=== PATIENT | female | born 1960 | race Caucasian/White ===

== ENCOUNTER 2017-10-14 08:56 | Emergency (ER) | payer BC, OTHER ==
[~2017-10-14] VITALS: Ht 170.2 cm; Wt 61.2 kg
--- NOTE | ~2017-10-14 | EKG ---
[address] [place] [employer] [place] [address] ELECTROCARDIOGRAM REPORT Name: JENISE GUERRERO Room #: DEP SEGUN Orellana#: [id number] Admission: 10/14/17 Attend Phys: Discharge: 10/14/17 Date of : 64 Report #: [id number] THIS REPORT FOR: //name// [facility] ED Test Date: 2017-10-14 Test Time: 09:31:21 Pat Name: JENISE GUERRERO Department: Room: Gender: F [employer] Operator: cathy irene : 1960 Requested By: Matthew Andre Order Number: [id number] MD: Aj Lewis Measurements Intervals [place] Rate: 71 P: 50 MA: 191 QRS: 45 QRSD: 108 T: 63 QT: 413 QTc: 449 Interpretive Statements Sinus rhythm RSR' in V1 or V2, right VCD No previous ECG available for comparison Electronically Signed On 10-14-2017 14:44:23 CDT by Aj Lewis [email or web address] <ELECTRONICALLY SIGNED> By: Aj Lewis MD, [facility] 10/14/17 1444 0931 0 Aj Lewis MD, FACC /EPI
[~2017-10-14 08:56] MED LIST: VICODIN 5-5001 EACH PO
[2017-10-14 09:21] LABS: BASOPHILS 0.1 % (0.0-2.0); EOSINOPHILS 3.4 % (0.0-3.0); HEMATOCRIT 39.3 % (37.0-47.0); HEMOGLOBIN 13.6 gm/dL (12.0-15.0); LYMPHOCYTES 47.1 % (24.0-44.0); MCH 32.9 pg (26.0-34.0); MCHC 34.5 g/dL (28.0-37.0); MCV 95.6 fL (80.0-100.0); MONOCYTES 8.7 % (1.0-8.0); PLATELET COUNT 195 thou/uL (150-400); POLYS 40.7 % (36.0-66.0); RBC 4.12 mil/uL (4.20-5.00); RDW 13.6 % (10.5-14.5); WBC 4.8 thou/uL (4.0-11.0)
[2017-10-14] MEDS ORDERED: VITAMIN D3400 UNIT PO (09:23)
[2017-10-14] MEDS ORDERED: MOBIC7.5 MG PO (09:24)
[2017-10-14] MEDS ORDERED: DOXYCYCLINE 10100 MG PO (09:24)
[2017-10-14] MEDS ORDERED: POTASSIUM20 PO (09:24)
[2017-10-14] MEDS ORDERED: HYDROCHLOROTH12.5 M1 PO (09:24)
[2017-10-14 09:28] LABS: ANION GAP 11 mmol/L (7-16); BUN 14 mg/dL (7-18); CALCIUM 9.6 mg/dL (8.5-10.1); CHLORIDE 102 mmol/L (98-107); CO2 28 mmol/L (21-32); GLUCOSE 114 mg/dL (74-106); POTASSIUM 3.1 mmol/L (3.5-5.1); SODIUM 141 mmol/L (136-145)
[2017-10-14 09:32] LABS: APTT 27.2 Seconds (24.5-32.8); PROTIME 9.9 Seconds (9.3-11.4)
[2017-10-14 09:36] LABS: ALBUMIN 3.8 g/dL (3.4-5.0); MAGNESIUM 1.7 mg/dL (1.8-2.4); SGOT 23 U/L (15-37); SGPT 28 U/L (30-65); TOTAL BILIRUBIN 0.8 mg/dL (<0.1-1.0); TOTAL PROTEIN 8.1 g/dL (6.4-8.2); TROPONIN-I <0.06 ng/mL (<0.06)
[2017-10-14 10:22] LABS: URINE BILIRUBIN NEGATIVE (Negative); URINE BLOOD NEGATIVE (Negative); URINE CLARITY CLEAR; URINE COLOR YELLOW; URINE GLUCOSE-RANDOM* NEGATIVE (Negative); URINE KETONES NEGATIVE (Negative); URINE LEUKOCYTES-REFLEX NEGATIVE (Negative); URINE NITRITE-REFLEX NEGATIVE (Negative); URINE PROTEIN (DIPSTICK) NEGATIVE (Negative); URINE SPECIFIC GRAVITY 1.025 (1.005-1.035); URINE UROBILINOGEN 0.2 E.U./dl (0.2-1.0)
[2017-10-14 10:32] LABS: AMP/METHAMP Negative (Negative); BARBITURATES Negative (Negative); BENZODIAZEPINES Negative (Negative); COCAINE Negative (Negative); METHADONE Negative (Negative); OPIATES Negative (Negative); PCP Negative (Negative)
[2017-10-14] MEDS ORDERED: MAG-OXIDE400 MG PO (11:43)
[2017-10-14 12:01] VITALS: BP 143/89
== END 2017-10-14 12:01 | disposition home or self-care (01) ==
LOC: ER 08:56
PROVIDERS: Emergency Medicine
DX: R20.2 Paresthesia of skin (principal); F10.129 Alcohol abuse with intoxication, unspecified; E87.6 Hypokalemia; E03.9 Hypothyroidism, unspecified; E83.42 Hypomagnesemia; F17.210 Nicotine dependence, cigarettes, uncomplicated; I10 Essential (primary) hypertension; Z88.2 Allergy status to sulfonamides; Y90.0 Blood alcohol level of less than 20 mg/100 ml